=== PATIENT | male | born 1945 | race Caucasian/White ===

== ENCOUNTER 2017-11-23 19:37 | Emergency (ER) | payer BC, MEDICARE ==
--- NOTE | 2017-11-23 21:08 | RAD ---
SINGLE VIEW OF THE CHEST AND LEFT RIB SERIES: 11/23/17 COMPARISON: None. HISTORY: Fall down stairs with left flank and rib pain. FINDINGS: Single view of the chest and multiple views of the left ribs were performed. There are moderately dis placed fractures of the posterolateral 6th and 7th ribs. Underlying pleural thickening is seen. There may also be a nondisplaced fracture of the left posterolateral 4th and 5th ribs. No underlying pneum othorax is seen. IMPRESSION: Left 4th through 6th rib fractures as above. POS: [facility]
--- NOTE | 2017-11-23 21:38 | CT ---
CT CERVICAL SPINE WITHOUT CONTRAST: 11/23/17 HISTORY: Fall down five stairs. Patient fell backwards. Patient complaining of posttraumatic pain. COMPARISON: None. TECHNIQUE: CT cervical spine is performed without contrast. Reformatted images are submitted. FINDINGS: No craniocervical dissociation. Cervical spine vertebral body height is maintained. There is no fract ure. There is anterolisthesis of C4 upon C5 (4 mm). Anterolisthesis is presumed to be on the basis of degenerative change. Straightening of the normal cervical lordosis may be due to patient position, s pasm or cervical collar. There is moderate loss of disc space height and osteophyte formation of C5-C 6, C6-C7, as well as at the C7-T1 level. There is no prevertebral soft tissue swelling. The visualized upper mediastinum and lung apices are u nremarkable. There is extensive facet hypertrophy. Nevertheless, the facets have appropriate alignment. Appropriat e alignment of the lateral masses of C1 and C2. Visualized odontoid process is intact. There are vary ing degrees of severe central canal stenosis on the basis of degenerative change. There is moderate t o severe central canal stenosis at C2-C3 due to disc osteophyte complex which has a predominantly shivani tral and left paracentral component. There is severe central canal stenosis due to broad based disc o steophyte complex with a large central and left paracentral component at C3-C4. There is a broad based disc osteophyte complex with a central component with moderate central canal stenosis at C4-C5. There are varying degrees of foraminal steno sis on the basis of degenerative change. IMPRESSION: 1. Extensive degenerative changes of the cervical spine. There is significant central canal sten osis at multiple levels due to degenerative change. 2. Varying degrees of foraminal stenosis as above. 3. Straightening of the normal cervical lordosis. If there is concern for ligamentous injury, co nsider MRI. 4. No evidence of fracture. POS: [facility]
[2017-11-23] MEDS ORDERED: Ondansetron ODT 4 MG TAB ONE (22:29)
[2017-11-23] MEDS ORDERED: Acetaminophen/Codeine 30-300mg Tablet ONE (22:29)
== END 2017-11-23 22:34 | disposition home or self-care (01) ==
LOC: ERS 19:37
DX: S22.42XA Multiple fractures of ribs, left side, initial encounter for closed fracture (principal); S16.1XXA Strain of muscle, fascia and tendon at neck level, initial encounter; M19.90 Unspecified osteoarthritis, unspecified site; E11.9 Type 2 diabetes mellitus without complications; E78.5 Hyperlipidemia, unspecified; G30.9 Alzheimer's disease, unspecified; F02.80 Dementia in other diseases classified elsewhere, unspecified severity, without behavioral disturbance, psychotic disturbance, mood disturbance, and anxiety; W10.9XXA Fall (on) (from) unspecified stairs and steps, initial encounter
CPT/HCPCS: 72125; Q0162

== ENCOUNTER 2018-12-06 11:09 | Outpatient (CLI) | payer MEDICARE ==
--- NOTE | 2018-12-06 13:14 | RAD ---
LEFT FOOT RADIOGRAPHS 3 VIEWS: DATE: 12/06/2018. PROVIDED CLINICAL HISTORY: Pain at the base of the 5th metatarsal. FINDINGS: No comparisons. There is subtle linear lucency present in the region of the proximal 5th metatarsal diaphysis that could reflect nondisplaced fracture. Mid foot degenerative changes are seen. Conspic uous plantar and posterior calcaneal enthesophyte formation are noted. IMPRESSION: Possible nondisplaced base of the 5th metatarsal fracture. POS: [facility]
== END 2018-12-06 11:10 | disposition home or self-care (01) ==
LOC: BICRAD 11:09
PROVIDERS: ATTEND Podiatrist
DX: M79.672 Pain in left foot (principal)

== ENCOUNTER 2020-06-03 15:35 | Outpatient (CLI) | payer MEDICARE | END 2020-06-03 15:36 | disposition home or self-care (01) | LOC: BICRAD 15:35 | PROVIDERS: ATTEND Podiatrist | DX: M25.571 Pain in right ankle and joints of right foot (principal); M19.071 Primary osteoarthritis, right ankle and foot ==

== ENCOUNTER 2021-07-22 12:35 | Outpatient (CLI) | payer MEDICARE | END 2021-07-22 12:36 | disposition home or self-care (01) | LOC: MRI 12:35 | PROVIDERS: ATTEND Family Medicine | DX: M54.2 Cervicalgia (principal); R41.3 Other amnesia; M50.321 Other cervical disc degeneration at C4-C5 level; M48.02 Spinal stenosis, cervical region; G95.20 Unspecified cord compression; R90.82 White matter disease, unspecified; J34.89 Other specified disorders of nose and nasal sinuses | CPT/HCPCS: 70551; 72141 ==

== ENCOUNTER 2021-09-10 13:03 | Emergency (ER) | payer OTHER, MEDICARE ==
[2021-09-10 16:12] LABS: #Eosinphils 0.1 thou/uL (0.0-0.7); #Lymphocytes 1.1 thou/uL (1.20-3.40); #Monocytes 0.6 thou/uL (0.11-0.59); #Neutrophils 3.9 thou/uL (1.40-6.50); %Basophils 0.2 % (0.0-1.0); %Eosinophils 2.4 % (0.0-10.0); %Lymphocytes 19.6 % (21.0-51.0); %Neutrophils 67.7 % (42.0-75.0); Hemoglobin 10.8 g/dL (14.0-18.0); Mean Corpuscular HGB CONC 31.6 g/dL (32.0-36.0); Mean Corpuscular Volume 91.8 fL (78.0-98.0); Mean Platelet Volume 7.6 fL (7.4-10.4); Platelet Count 220 thou/uL (130-400); RBC Distribution Width 13.7 % (11.5-14.5); Red Blood Cell (RBC) Count 3.74 mill/uL (4.70-6.10); White Blood Cell (WBC) Count 5.7 thou/uL (4.8-10.8)
[2021-09-10 16:25] LABS: Bilirubin Negative (Negative); Blood, Urine Negative (Negative); Clarity Clear (Clear); Glucose, Urine (Dipstick) Normal (Negative); Ketone, Urine Negative (Negative); Leukocyte Negative Leu/uL (Negative); Nitrite Negative (Negative); Protein, Urine (Dipstick) Negative (Neg-Trace); Specific Gravity, Urine 1.016 (1.002-1.036); Urobilinogen Normal mg/dL (Less than 2)
[2021-09-10] MEDS ORDERED: Boostrix 0.5 ML (Tdap) VIAL ONE (16:25)
[2021-09-10 16:35] LABS: ALT (SGPT) 12 U/L (8-55); AST (SGOT) 18 U/L (5-34); Albumin 4.1 g/dL (3.4-4.8); Alkaline Phosphatase 77 U/L (40-110); Anion Gap 15 mmol/L (10-20); BUN (Urea Nitrogen) 14 mg/dL (8.4-25.7); Bilirubin, Total 0.4 mg/dL (0.2-1.2); Calc. Creatinine Clearance 0 mL/min (70-130); Calcium 9.1 mg/dL (7.8-10.44); Carbon Dioxide 26 mmol/L (23-31); Chloride 102 mmol/L (98-107); Estimated GFR 59; Globulin 2.1 g/dL (2.4-3.5); Glucose 215 mg/dL (83-110); Potassium 4.4 mmol/L (3.5-5.1); Protein, Total 6.2 g/dL (5.8-8.1); Sodium 139 mmol/L (136-145)
== END 2021-09-10 17:23 | disposition home or self-care (01) ==
LOC: ERS 13:03
DX: S00.03XA Contusion of scalp, initial encounter (principal); S80.212A Abrasion, left knee, initial encounter; D64.9 Anemia, unspecified; E11.65 Type 2 diabetes mellitus with hyperglycemia; E78.5 Hyperlipidemia, unspecified; E78.00 Pure hypercholesterolemia, unspecified; I10 Essential (primary) hypertension; Z79.84 Long term (current) use of oral hypoglycemic drugs; Z79.899 Other long term (current) drug therapy; W01.0XXA Fall on same level from slipping, tripping and stumbling without subsequent striking against object, initial encounter
CPT/HCPCS: 36415; 70450; 72125; 80053; 81003; 84484; 85025; 90471; 90715; 93005

== ENCOUNTER 2024-01-10 12:20 | Outpatient (CLI) | payer MEDICARE, OTHER ==
[2024-01-10 14:47] LABS: #Basophils 0.04 10x3/uL (0.0-0.2); %Basophils 0.8 % (0.0-1.0); %Eosinophils 2.1 % (0.0-10.0); %Lymphocytes 24.2 % (21.0-51.0); %Monocytes 10.8 % (0.0-10.0); %Neutrophils 61.9 % (42.0-75.0); Hematocrit 45.5 % (42.0-52.0); Hemoglobin 13.7 g/dL (14.0-18.0); Mean Corpuscular HGB CONC 30.1 g/dL (32.0-36.0); Mean Corpuscular Hemoglobin 27.5 pg (27.0-31.0); Mean Corpuscular Volume 91.2 fL (78.0-98.0); Mean Platelet Volume 10.3 fL (7.4-10.4); Platelet Count 205 10x3/uL (130-400); RBC Distribution Width 15.1 % (11.5-14.5); Red Blood Cell (RBC) Count 4.99 mill/uL (4.70-6.10)
[2024-01-10 15:05] LABS: Anion Gap 9 mmol/L (10-20); BUN (Urea Nitrogen) 17 mg/dL (8.4-25.7); Calc. Creatinine Clearance 0 mL/min (70-130); Calcium 9.6 mg/dL (7.8-10.44); Carbon Dioxide 28 mmol/L (23-31); Chloride 105 mmol/L (98-107); Estimated GFR 72; Glucose 60 mg/dL (83-110); Sodium 138 mmol/L (136-145)
[2024-01-10 15:06] LABS: Prothrombin Time 13.7 sec (12.0-14.7)
== END 2024-01-10 12:21 | disposition home or self-care (01) ==
LOC: LABBT 12:20
PROVIDERS: ATTEND Urology
DX: Z01.812 Encounter for preprocedural laboratory examination (principal); N47.1 Phimosis; Z95.1 Presence of aortocoronary bypass graft
CPT/HCPCS: 80048; 85025; 85610; 85730

== ENCOUNTER 2024-01-20 08:38 | Day surgery (SDC) | payer MEDICARE, OTHER ==
[2024-01-10 12:56] VITALS: BMI 31.2
[2024-01-20] MEDS ORDERED: PROPOFOL 20 ML ONE (09:18)
[2024-01-20] MEDS ORDERED: Lidocaine 2% PF 5 ML VIAL ONE (09:18)
[2024-01-20] MEDS ORDERED: ePHEDrine Sulfate 50 MG/10 ML VIAL ONE (09:25)
[2024-01-20] MEDS ORDERED: Bupivacaine 0.25% HCL 30 ML VIAL ONE (09:41)
[2024-01-20] MEDS ORDERED: Bacitracin Zinc Ointment 30 gm TUBE ONE (09:41)
[2024-01-20] MEDS ORDERED: fentaNYL PF 100 MCG/2 ML SYRINGE ONE (09:56)
[2024-01-20] MEDS ORDERED: CEFAZOLIN 2 GM VIAL ONE (10:04)
[2024-01-20] MEDS ORDERED: Sodium Chloride 0.9% 100 ML ONE (10:12)
[2024-01-20] MEDS ORDERED: Ondansetron PF 4 MG/2 ML Vial ONE (10:24)
== END 2024-01-20 12:30 | disposition home or self-care (01) ==
LOC: SDC 08:38
PROVIDERS: ATTEND Urology
PROC: 0VNT0ZZ Release Prepuce, Open Approach (ICD-10-PCS; principal; 2024-01-20)
DX: N47.1 Phimosis (principal); I10 Essential (primary) hypertension; I65.29 Occlusion and stenosis of unspecified carotid artery; I25.10 Atherosclerotic heart disease of native coronary artery without angina pectoris; E11.9 Type 2 diabetes mellitus without complications; E23.0 Hypopituitarism; E78.5 Hyperlipidemia, unspecified; F03.90 Unspecified dementia, unspecified severity, without behavioral disturbance, psychotic disturbance, mood disturbance, and anxiety; N40.0 Benign prostatic hyperplasia without lower urinary tract symptoms; Z95.1 Presence of aortocoronary bypass graft; Z96.652 Presence of left artificial knee joint; Z90.89 Acquired absence of other organs; Z98.890 Other specified postprocedural states; Z79.82 Long term (current) use of aspirin; Z79.899 Other long term (current) drug therapy
CPT/HCPCS: 54001; 82962; J0665; J2405; J2704; 36416

== ENCOUNTER 2024-03-05 17:23 | Emergency (ER) | payer MEDICARE, OTHER ==
[2024-03-05] MEDS ORDERED: Acetaminophen 500 MG TAB ONE (17:37)
== END 2024-03-05 19:03 | disposition home or self-care (01) ==
LOC: ERS 17:23
DX: S09.90XA Unspecified injury of head, initial encounter (principal); S50.02XA Contusion of left elbow, initial encounter; E11.9 Type 2 diabetes mellitus without complications; I10 Essential (primary) hypertension; W01.0XXA Fall on same level from slipping, tripping and stumbling without subsequent striking against object, initial encounter
CPT/HCPCS: 70450; 72170